=== PATIENT | female | born 1980 | race Asian ===

== ENCOUNTER 2018-09-18 05:24 | Inpatient (IN) | payer BC ==
[2018-09-19] MEDS ORDERED: Ondansetron PF 4 MG/2 ML Vial IVP PRN (08:49)
[2018-09-19] MEDS ORDERED: Butorphanol Tartrate 1 MG/ML VIAL SLOW IVP PRN (08:49)
[2018-09-19] MEDS ORDERED: Acetaminophen 500 MG TAB PO PRN (08:49)
[2018-09-19] MEDS ORDERED: Promethazine HCl 25 MG/ML VIAL IM PRN (08:49)
[2018-09-20] MEDS ORDERED: Bicitra 30 ML UDCUP PO SCH (06:00)
[2018-09-20] MEDS ORDERED: CEFAZOLIN 2 GM in Premix Bag 1 BAG IVPB SCH (06:00)
[2018-09-20 06:09] VITALS: BMI 22.3
[2018-09-20] MEDS: Lactated Ringer's 1,000 ML IV SCH ×2 (06:26→07:11)
[2018-09-20 06:28] LABS: Hemoglobin 13.6 g/dL (12.0-16.0); Mean Corpuscular HGB CONC 34.2 g/dL (32.0-36.0); Mean Corpuscular Hemoglobin 34.3 pg (27.0-31.0); Mean Platelet Volume 8.5 fL (7.4-10.4); Platelet Count 167 thou/uL (130-400); RBC Distribution Width 12.5 % (11.5-14.5); Red Blood Cell (RBC) Count 3.97 mill/uL (4.20-5.40); White Blood Cell (WBC) Count 10.7 thou/uL (4.8-10.8)
[2018-09-20] MEDS ORDERED: MORPHINE 5 MG/10 ML PF VIAL ONE (06:30)
[2018-09-20] MEDS ORDERED: Oxytocin 10 UNITS/ML VIAL ONE (06:31)
[2018-09-20] MEDS ORDERED: Phenylephrine HCL 10 MG/ML VIAL ONE (06:31)
[2018-09-20] MEDS ORDERED: Ondansetron PF 4 MG/2 ML Vial ONE (06:31)
[2018-09-20] MEDS ORDERED: ePHEDrine/0.9% NaCl/PF SYRINGE 50 mg/10 ml ONE (06:31)
[2018-09-20 07:00] LABS: Syphilis Antibody Nonreactive (Nonreactive); Syphilis Antibody Index 0.05 S/CO (<1.00 Non-Reactive)
[2018-09-20 08:22] LABS: Hep B Surf Ag REACTIVE S/CO (NonReactive)
[2018-09-20] MEDS ORDERED: Ondansetron PF 4 MG/2 ML Vial IVP PRN ×2 (08:23→08:34)
[2018-09-20] MEDS ORDERED: Naloxone HCl 0.4 mg/ml Vial IVP PRN ×2 (08:23)
[2018-09-20] MEDS ORDERED: HYDROmorphone 2 MG/ML VIAL SLOW IVP PRN (08:23)
[2018-09-20] MEDS ORDERED: Ondansetron HCl/PF 4 MG/2 ML Vial IVP PRN (08:23)
[2018-09-20] MEDS ORDERED: Meperidine HCl/PF 25 MG/ML VIAL SLOW IVP PRN (08:23)
[2018-09-20] MEDS ORDERED: L&D-Morphine 4 MG/ML VIAL SLOW IVP PRN (08:23)
[2018-09-20] MEDS ORDERED: Ketorolac Tromethamine 30 MG/ML VIAL IVP PRN (08:23)
[2018-09-20] MEDS ORDERED: diphenhydrAMINE 50 MG/ML VIAL IVP PRN (08:23)
[2018-09-20] MEDS ORDERED: Naloxone HCl 0.4 mg/ml Vial IV PRN (08:23)
[2018-09-20] MEDS ORDERED: Promethazine HCl 25 MG/ML VIAL IM PRN (08:23)
[2018-09-20] MEDS ORDERED: Promethazine HCl 25 MG SUPP PR PRN (08:23)
[2018-09-20] MEDS ORDERED: Ketorolac Tromethamine 30 MG/ML VIAL IVP SCH (08:30)
[2018-09-20] MEDS ORDERED: Communication Order-Pharmacy FS SCH (08:30)
[2018-09-20 08:31] LABS: HBSAg Index 3623.09 S/CO (0-0.99)
[2018-09-20] MEDS ORDERED: Bisacodyl 10 MG SUPP PR PRN (08:34)
[2018-09-20] MEDS ORDERED: Acetaminophen/Codeine 30-300mg Tablet PO PRN ×3 (08:34→20:30)
[2018-09-20] MEDS ORDERED: Lanolin Ointment 7 GM TUBE TOP PRN (08:34)
[2018-09-20] MEDS ORDERED: Adacel (T-DAP) 0.5 ML SYRINGE IM ONE (08:34)
[2018-09-20] MEDS ORDERED: Acetaminophen 325 MG TAB PO PRN (08:34)
[2018-09-20] MEDS ORDERED: diphenhydrAMINE 25 MG CAP PO PRN (08:34)
[2018-09-20] MEDS ORDERED: Simethicone Chewable 80 MG TAB PO PRN (08:34)
[2018-09-20] MEDS ORDERED: Lactated Ringer's 1,000 ML IV SCH (08:45)
[2018-09-20] MEDS ORDERED: NS / Oxytocin 40 units/1000ml 1,000 ML IV SCH (08:45)
[2018-09-20] MEDS: Docusate Calcium (SURFAK) 240 MG CAP PO SCH (13:24)
[2018-09-20] MEDS: Prenatal Vitamin 1 TAB PO SCH (13:24)
[2018-09-20] MEDS ORDERED: ePHEDrine 50 MG/ML VIAL ONE (14:57)
[2018-09-20] MEDS: Ferrous Sulfate 325 MG TAB PO SCH (18:19)
[2018-09-20] MEDS ORDERED: Butorphanol Tartrate 1 MG/ML VIAL SLOW IVP PRN (20:30)
[2018-09-20] MEDS ORDERED: Meperidine HCl/PF 25 MG/ML VIAL IM PRN (20:30)
[2018-09-21] MEDS ORDERED: Ketorolac Tromethamine 30 MG/ML VIAL ONE (03:30)
[2018-09-21] MEDS: Prenatal Vitamin 1 TAB PO SCH (10:32)
[2018-09-21] MEDS: Docusate Calcium (SURFAK) 240 MG CAP PO SCH ×2 (10:33→12:17)
[2018-09-21] MEDS: Ferrous Sulfate 325 MG TAB PO SCH ×2 (10:38→17:59)
--- NOTE | 2018-09-21 12:29 | OP ---
DATE OF PROCEDURE: 09/20/2018 ASSISTANT GOLF COACH SURGEON: Freida Villegas MD PREOPERATIVE DIAGNOSES: 1. Term intrauterine at 42 and 2/7th weeks. 2. Declines trial of labor. 3. Small for gestational age. POSTOPERATIVE DIAGNOSES: 1. Term intrauterine at 42 and 2/7th weeks. 2. Declines trial of labor. 3. Small for gestational age. PROCEDURE PERFORMED: Primary low-transverse section. ANESTHESIA: Spinal catheterization. FINDINGS: 1. Baby measuring small for gestational age with no interval growth x1 week and decreasing LATANYA. 2. Declines trial of labor secondary to difficult exams, small introitus and contracted pelvis. 3. Viable female infant, 6 pounds 15 ounces. Apgars 8 and 9. 4. Normal uterus, tubes, and ovaries. COMPLICATIONS: None. SPECIMENS REMOVED: Cord blood. ESTIMATED BLOOD LOSS: Approximately 400 mL (QBL 385 mL). HISTORY AND INDICATIONS: Mrs. Macie Decker is a very pleasant 38-year-old female G1, P0, who is admitted to [facility] this morning for scheduled delivery. The patient is postdates and has been followed closely for SGA with no interval growth over the last week. The patient has declined trial of labor secondary to extremely difficult and painful examinations. She does not tolerate cervical checks secondary to discomfort. In addition, she has a very small introitus and a small pelvis. After lengthy counseling and discussion of options, she has elected to proceed with primary delivery. The surgical consents have been signed and placed in the chart. Questions have been answered to her satisfaction. DESCRIPTION OF PROCEDURE: After thorough consent and counseling, Mrs. Decker was taken to the operating room and an adequate level of anesthesia was obtained via spinal catheterization. The patient was prepped and draped in the usual fashion for abdominal surgery. A Wang was placed in the bladder, which was draining clear urine. Attention was then turned to performing the surgical procedure. A Pfannenstiel incision was made and carried sharply to the fascia, which was also sharply incised. The midline was identified and the rectus muscles were retracted laterally. The abdominal peritoneal cavity was entered with usual safeguards carried out. A retractor was placed and a bladder flap was created on the vesicouterine peritoneum. A bladder blade was then placed. A low-transverse incision was made on the well-developed lower uterine segment. Upon entering the amniotic sac, there was a small amount of clear amniotic fluid noted. The was noted to be vertex presentation, in the occiput anterior position still high in the pelvis. The head was delivered and nuchal cord x1 was reduced. Shoulders and body were then delivered in an atraumatic fashion. The cord was doubly clamped and cut and the infant was handed to the pediatric team in attendance for the delivery. The was a vigorous viable female with Apgars of 8 and 9 obtained at one and five minutes respectively. Cord blood was obtained. The placenta was manually removed from the uterus. Uterus was exteriorized and good tone was noted. The uterine cavity was cleared of remaining clot and fluid. The low-transverse incision was closed with a running locking ligature of #1 chromic. A second imbricating layer was placed to facilitate strengthened hemostasis. The vesicouterine peritoneum was reapproximated to the lower segment with a running ligature of 3-0 Monocryl suture. The incision was carefully inspected and noted to be hemostatic. The posterior cul-de-sac and gutters were cleared of clot and fluid. The uterus, fallopian tubes, and ovaries were carefully inspected and noted to be normal. Uterus was returned to the abdomen and incision was again inspected and noted to be normal. Seprafilm was applied to the anterior aspect of the uterus in the low-transverse incision for adhesion prevention. Lap, sponge, and needle counts were correct. The peritoneum was then closed with a running ligature of 2-0 Vicryl for additional adhesion prevention measures. The rectus muscles were reapproximated in the midline with interrupted ligatures of 2-0 Vicryl and #1 chromic. The fascia was then closed with 2 ligatures of 0 Vicryl, which were tied in the midline. Good fascial integrity was appreciated. The incision was then irrigated with copious amount of warm normal saline. Hemostasis was obtained with Bovie cauterization. The subcutaneous tissue was closed with interrupted ligatures of 2-0 plain. The skin was then closed with a subcuticular stitch of 4-0 Monocryl and dressed with Dermabond. A pressure dressing aspects were subsequently placed. Lap, sponge, and needle counts were correct x3. Estimated blood loss during the surgical procedure was approximately 400 mL. The patient was awakened, taken to the recovery room in good condition. Immediately following surgery, the patient and family were made aware of the surgical procedure and operative findings. The baby was returned to the mother in the recovery room for [id number] and feeding. The patient and her reported they were very appreciative of the care rendered here at [facility] this morning. Job ID: [id number]
[2018-09-21] MEDS: Acetaminophen/Codeine 30-300mg Tablet PO PRN ×2 (13:45→18:11)
[2018-09-21 14:41] LABS: Hemoglobin 13.4 g/dL (12.0-16.0); Mean Corpuscular HGB CONC 33.4 g/dL (32.0-36.0); Mean Corpuscular Hemoglobin 34.2 pg (27.0-31.0); Mean Platelet Volume 8.3 fL (7.4-10.4); Platelet Count 153 thou/uL (130-400); RBC Distribution Width 12.4 % (11.5-14.5); Red Blood Cell (RBC) Count 3.93 mill/uL (4.20-5.40); White Blood Cell (WBC) Count 16.3 thou/uL (4.8-10.8)
[2018-09-21] MEDS: Ibuprofen 800 MG TAB PO SCH (17:01)
[2018-09-22] MEDS: Ibuprofen 800 MG TAB PO SCH ×3 (07:38→22:07)
[2018-09-22] MEDS: Acetaminophen/Codeine 30-300mg Tablet PO PRN (09:20)
[2018-09-22] MEDS: Docusate Calcium (SURFAK) 240 MG CAP PO SCH ×3 (09:21→22:07)
[2018-09-22] MEDS: Prenatal Vitamin 1 TAB PO SCH (09:21)
[2018-09-22] MEDS: Ferrous Sulfate 325 MG TAB PO SCH ×2 (09:22→19:03)
[2018-09-22] MEDS ORDERED: HYDROcodone/Acetaminophen 7.5/325 mg Tablet PO PRN (13:27)
[2018-09-22] MEDS: HYDROcodone/Acetaminophen 7.5/325 mg Tablet PO PRN (20:31)
[2018-09-23 00:46] VITALS: TEMP 98.2
[2018-09-23] MEDS: Ibuprofen 800 MG TAB PO SCH ×3 (02:07→14:18)
[2018-09-23 08:13] VITALS: BP 116/70
[2018-09-23] MEDS: Prenatal Vitamin 1 TAB PO SCH (08:19)
[2018-09-23] MEDS: Docusate Calcium (SURFAK) 240 MG CAP PO SCH (08:19)
[2018-09-23] MEDS: Ferrous Sulfate 325 MG TAB PO SCH (09:19)
[2018-09-23] MEDS: HYDROcodone/Acetaminophen 7.5/325 mg Tablet PO PRN (12:40)
== END 2018-09-23 14:30 | disposition home or self-care (01) | DRG 787 ==
LOC: EDSTATUS 05:24 → L&D 09-20 05:28 → 3SW 09-20 11:16
PROVIDERS: ADMIT Obstetrics & Gynecology; ATTEND Obstetrics & Gynecology
PROC: 10D00Z1 Extraction of Products of Conception, Low, Open Approach (ICD-10-PCS; principal; 2018-09-21)
DX: O36.5930 Maternal care for other known or suspected poor fetal growth, third trimester, not applicable or unspecified (principal); O33.0 Maternal care for disproportion due to deformity of maternal pelvic bones; O98.42 Viral hepatitis complicating childbirth; B19.10 Unspecified viral hepatitis B without hepatic coma; O48.0 Post-term pregnancy; Z3A.42 42 weeks gestation of pregnancy; O99.02 Anemia complicating childbirth; D64.9 Anemia, unspecified; O99.214 Obesity complicating childbirth; E66.9 Obesity, unspecified; Z37.0 Single live birth
CPT/HCPCS: 36415; 51702; 85027; 86780; 86850; 86900; 86901; 87340; J0690; J1885; J2270; J2370; J2405; J2590; J3490